=== PATIENT | female | born 1980 | race Caucasian/White ===

== ENCOUNTER 2017-05-26 11:08 | Emergency (ER) | payer BC, OTHER ==
[~2017-05-26] VITALS: Ht 167.6 cm; Wt 89.6 kg
[2017-05-26 11:26] VITALS: TEMP 36.9; Ht 167.6 cm; Wt 89.6 kg
[2017-05-26] MEDS ORDERED: ONDANSETRON INJ 2 MG/ML 2 ML VIAL IV STA (12:26)
[2017-05-26] MEDS ORDERED: MoRPHine SULFATE 10 MG/ML CARP/VIAL IV STA (12:26)
[2017-05-26] MEDS ORDERED: LACTATED RINGER'S 1000ML 1,000 ML IV ONE (12:30)
[2017-05-26 12:58] VITALS: O2SAT 97
[2017-05-26 13:15] LABS: URINE APPEARANCE CLEAR (CLEAR); URINE BILIRUBIN NEG (NEG); URINE COLOR YELLOW; URINE NITRITE NEG (NEG); URINE PH 5.5 (4.5-7.5); URINE SPECIFIC GRAVITY 1.012 (1.000-1.030); UROBILINOGEN NEG (NEG)
[2017-05-26 13:16] LABS: MANUAL MICROSCOPIC REQUIRED? NO; REVIEW REQ? NO
[2017-05-26 13:18] LABS: BASO % 0.3 %; BASO ABS # 0.04 K/uL (0-0.2); COMPLETE YES; EOS % 1.1 %; HEMATOCRIT 40.8 % (37-47); IG% 0.2 %; LYMPH % 14.9 %; LYMPH ABS # 2.04 K/uL (1.2-3.4); MEAN CELL VOLUME 91.3 fL (80-100); MEAN PLATELET VOLUME 10.7 fL (7.4-10.4); MONO % 9.3 %; NEUT % 74.2 %; PLATELET COUNT 305 K/uL (130-400); RED BLOOD COUNT 4.47 M/uL (4.2-5.4)
[2017-05-26 13:37] LABS: BUN/CREATININE RATIO 9.2 (10-20); CREATININE 0.77 mg/dl (0.60-1.20); POTASSIUM 3.8 mmol/L (3.5-5.1)
[2017-05-26] MEDS ORDERED: OPTIRAY 320 IV PRN (15:15)
[2017-05-26 15:50] VITALS: BP 120/90; PULSE 82; O2SAT 98
--- NOTE | 2017-05-26 15:51 | DIAGNOSTIC IMAGING REPORT ---
ABDOMEN AND PELVIS CT WITH IV AND ORAL CONTRAST CT DOSE: 980.11 mGycm HISTORY: Left lower quadrant abdominal pain. TECHNIQUE: Multiaxial CT images of the abdomen and pelvis were performed following the use of intravenous and oral contrast. A dose lowering technique was utilized adhering to the principles of ALARA. COMPARISON STUDY: None. FINDINGS: Punctate calcified granuloma within the left lower lobe. No pneumoperitoneum. No pneumatosis. No suspicious lytic or blastic osseous lesions. Tiny fat-containing umbilical hernia. Hepatic steatosis. Cholecystectomy. The spleen and adrenal glands are unremarkable. Normal pancreas. No renal stones or hydronephrosis. The kidneys enhance normally. The bladder, uterus, bilateral adnexa are unremarkable. Trace pelvic free fluid. A few colonic diverticula. A single inflamed diverticulum with surrounding fat stranding within the proximal sigmoid colon on image 343. This is consistent with acute diverticulitis. No perforation or abscess identified at this time. No evidence for bowel obstruction. Normal caliber appendix. IMPRESSION: Acute sigmoid diverticulitis. No perforation or abscess at this time. Electronically signed by: Camron Ovalles M.D. 05/26/2017 3:50 PM Dictated Date/Time: 05/26/2017 3:45 PM
--- NOTE | 2017-05-26 15:53 | DIAGNOSTIC IMAGING REPORT ---
EXAMINATION: PELVIC ULTRASOUND (transabdominal and endovaginal scanning) CLINICAL HISTORY: Pelvic pain, nausea, vomiting, diarrhea. COMPARISON STUDY: FINDINGS: The uterus measured 11.0 x 5.1 x 4.8 cm. There is a 12 mm fundal fibroid.. The bulging gland cysts are visualized. The endometrial stripe measured 9 mm. The right ovary measured 32 x 29 x 17 mm. There is a 19 mm follicle. The left ovary measured 27 x 19 x 16 mm.. There is no ultrasonographic evidence of ovarian torsion. It should be noted that ovarian torsion can be present with normal Doppler ultrasonographic findings. There was no evidence of pathologic free pelvic fluid. IMPRESSION: 1. 12 mm uterine fundal fibroid 2. Otherwise normal study. No pathologic adnexal masses. Electronically signed by: Lee Dimas M.D. 05/26/2017 3:52 PM Dictated Date/Time: 05/26/2017 3:50 PM
[2017-05-26] MEDS ORDERED: AMOX875T PO (16:12)
[2017-05-26] MEDS ORDERED: HYDR-5688 PO (16:12)
[2017-05-26] MEDS ORDERED: AMOXICILLIN/CLAVULANATE TAB 875 MG TAB PO ONE (16:15)
--- NOTE | 2017-05-26 20:18 | EMERGENCY ROOM VISIT NOTE ---
ED Visit Note First contact with patient: 11:59 Chief Complaint: I'm having pain in my left lower abdomen. History of Present Illness: Ms. Goss is a 37 year-old white female who ambulates into the ED accompanied by male friend complaining of left lower quadrant abdominal pain. Historically patient reports status post cholecystectomy and bilateral salpingectomy following topic . Patient reports a gradual onset of left lower quadrant abdominal pain that started approximately 18 hours ago. Since that time the pain has been slowly getting worse. The pain is currently described as cramping sensation that waxes and wanes with in intensity. Currently at rest she rates her discomfort 5 /10 but when it escalates her pain becomes 8/10. The pain is radiating towards the midline. Her pain worsens when she is lying on her left side, lying on her abdomen, and ambulating. She has not identified any alleviating factors related to the pain. She has not taken any medications for pain prior to arrival at the hospital. Associated with her pain she's been nauseated but has not vomited, she feels bloated and she has noted that her bowel movements are foul-smelling. Patient denies fevers, chills, sweats, skin eruptions, skin color changes, upper respiratory tract symptoms, shortness of breath, chest pain, nausea, vomiting, diarrhea, constipation, rectal bleeding, black/tarry stools, urinary symptoms, hematuria, vaginal bleeding, vaginal discharge, back/flank pain. Review of Systems: As noted above in history of present illness. All body systems were reviewed and found to be negative as noted above. Past Medical History: As noted above, unspecified knee, shoulder and finger surgery. Current Medications: Patient denies. Allergies to Medications: Patient denies. Social History: Patient is currently employed; she feels safe in her home environment; she denies tobacco and alcohol use. Physical Examination: Vital Signs: Date Time Temp Pulse Resp B/P (MAP) Pulse Ox O2 Delivery O2 Flow Rate FiO2 05/26/17 15:50 82 20 120/90 98 Room Air 05/26/17 13:52 80 18 134/87 96 Room Air 05/26/17 13:07 104 05/26/17 13:05 104 05/26/17 12:58 97 Room Air 05/26/17 12:58 98 16 123/86 96 Room Air 05/26/17 11:26 36.9 102 20 140/94 99 Room Air GENERAL: 37-year-old female in mild to moderate distress due to pain, nontoxic- appearing, afebrile and hemodynamically stable. NEUROLOGICAL: Awake, alert and oriented to person, place and time. Answering questions appropriately and following commands. Normal gait. Good hand eye coordination. SKIN: Warm, dry and pink. No soft tissue eruptions or trauma noted. HEENT: Atraumatic and normocephalic. PERRLA. Sclera white and conjunctiva pink. Oral cavity moist and pink. Pharynx is nonerythematous or edematous. Speech normal. No lymphadenopathy. Trachea midline. No jugular venous distention. BACK: No tenderness over the bony spine. No CVA tenderness. THORAX: Lungs sounds are clear to auscultation and equal bilaterally with symmetrical chest wall. No wheezing, rales or rhonchi. No crepitus, tenderness , subcutaneous air or deformities noted. HEART: Regular rate and rhythm. No gallops, rubs or murmurs are appreciated. ABDOMEN: Flat and soft with moderate tenderness in the left lower quadrant. Positive bowel sounds in all quadrants. No guarding, rigidity or organomegaly. EXTREMITIES: Moves all extremities well on command and with purpose. All distal neurovascular statuses are intact and equal bilaterally. ED Course: Patient is assessed as noted above. Laboratory Testing: Test 05/26/17 12:40 05/26/17 12:50 Range/Units White Blood Count 13.70 4.8-10.8 K/uL Red Blood Count 4.47 4.2-5.4 M/uL Hemoglobin 14.3 12.0-16.0 g/dL Hematocrit 40.8 37-47 % Mean Corpuscular Volume 91.3 80-100 fL Mean Corpuscular Hemoglobin 32.0 25-34 pg Mean Corpuscular Hemoglobin Concent 35.0 32-36 g/dl Platelet Count 305 130-400 K/uL Mean Platelet Volume 10.7 7.4-10.4 fL Neutrophils (%) (Auto) 74.2 % Lymphocytes (%) (Auto) 14.9 % Monocytes (%) (Auto) 9.3 % Eosinophils (%) (Auto) 1.1 % Basophils (%) (Auto) 0.3 % Neutrophils # (Auto) 10.16 1.4-6.5 K/uL Lymphocytes # (Auto) 2.04 1.2-3.4 K/uL Monocytes # (Auto) 1.28 0.11-0.59 K/uL Eosinophils # (Auto) 0.15 0-0.5 K/uL Basophils # (Auto) 0.04 0-0.2 K/uL RDW Standard Deviation 42.7 36.4-46.3 fL RDW Coefficient of Variation 12.8 11.5-14.5 % Immature Granulocyte % (Auto) 0.2 % Immature Granulocyte # (Auto) 0.03 0.00-0.02 K/uL Sodium Level 140 136-145 mmol/L Potassium Level 3.8 3.5-5.1 mmol/L Chloride Level 109 98-107 mmol/L Carbon Dioxide Level 24 21-32 mmol/L Anion Gap 7.0 3-11 mmol/L Blood Urea Nitrogen 7 7-18 mg/dl Creatinine 0.77 0.60-1.20 mg/dl Est Creatinine Clear Calc Drug Dose 111.7 ml/min Estimated GFR () 113.5 Estimated GFR (Non- 97.9 BUN/Creatinine Ratio 9.2 10-20 Random Glucose 79 70-99 mg/dl Calcium Level 9.0 8.5-10.1 mg/dl Total Bilirubin 1.8 0.2-1 mg/dl Direct Bilirubin 0.3 0-0.2 mg/dl Aspartate Amino Transf (AST/SGOT) 20 15-37 U/L Alanine Aminotransferase (ALT/SGPT) 37 12-78 U/L Alkaline Phosphatase 63 45-117 U/L Total Protein 8.3 6.4-8.2 gm/dl Albumin 3.7 3.4-5.0 gm/dl Lipase 161 73-393 U/L Urine Color YELLOW Urine Appearance CLEAR CLEAR Urine pH 5.5 4.5-7.5 Urine Specific [place] 1.012 1.000-1.030 Urine Protein NEG NEG Urine Glucose (UA) NEG NEG Urine Ketones NEG NEG Urine Occult Blood NEG NEG Urine Nitrite NEG NEG Urine Bilirubin NEG NEG Urine Urobilinogen NEG NEG Urine Leukocyte Esterase NEG NEG Urine Test NEG NEG Pelvic Ultrasound: Was reviewed by myself and read by the radiologist and shows a 12 mm uterine fundal fibroid and no sonographic evidence of ovarian torsion. Contrast Abdominal/Pelvic CT: Was reviewed by myself and read by the radiologist and shows a few colonic diverticula with a single inflamed diverticulum consistent with acute diverticulitis. No perforation or abscess. Patient was hydrated with lactated Ringer's and she received 4 mg of Zofran IV and 6 mg of morphine IV for her symptoms. Patient was reassessed multiple times during her stay in the emergency department. After she returned from her pelvic ultrasound she became nauseated and had episode of vomiting and she was given an additional 4 mg of Zofran IV; she was offered pain medications and refused. After CT findings patient was given 875 mg of Augmentin by mouth for antibiotic coverage. Patient's case was reviewed with Dr. Miranda; we agreed on diagnostic approach, treatment, disposition and plan. Patient was educated about today's findings and instructed on her treatment plan ; she verbalizes understanding and agreement with this plan. Clinical Impression: Acute sigmoid diverticulitis. Decision-Making: Initially my differential diagnosis I considered ectopic , ovarian torsion, ovarian cyst rupture, diverticulitis, appendicitis, constipation, urinary tract infection, ureter calculus and other causes. Disposition: Patient discharged home in stable condition accompanied by her ; prior to departure she was reassessed and subjectively reported she was feeling slightly better and rated her discomfort 4/10 and reported resolution of nausea. Plan: Patient was prescribed Augmentin 875 mg 2 times a day for 10 days. Patient was placed on a sliding pain scale of ibuprofen, acetaminophen and [place] ; she was given appropriate narcotic precautions and her name was checked on the state database and no red flags were noted. Patient was signed off work for 3 days. Patient was encouraged a well-hydrated with increased clear fluids and use a bland diet for the next 48 hours. Patient was encouraged to follow-up with PCP for recheck. Patient was encouraged return ED for worsening/uncontrolled pain, fevers, uncontrolled vomiting, bloody stools or any new/concerning symptoms.
== END 2017-05-26 16:20 | disposition home or self-care (01) ==
LOC: C.EDB 11:10
DX: K57.32 Diverticulitis of large intestine without perforation or abscess without bleeding (principal)

== ENCOUNTER 2017-10-20 15:30 | Emergency (ER) | payer OTHER ==
[~2017-10-20] VITALS: Ht 167.6 cm; Wt 88.7 kg
[~2017-10-20 15:30] MED LIST: HYDR-5688 PO
[2017-10-20 15:31] VITALS: Ht 167.6 cm; Wt 88.7 kg
[2017-10-20] MEDS ORDERED: SODIUM CHLORIDE 0.9% 1000ML 1,000 ML IV STA (15:42)
[2017-10-20] MEDS ORDERED: KETOROLAC TROMETHAMINE 30 MG/ML VIAL IV STA (15:42)
[2017-10-20] MEDS ORDERED: SODIUM CHLORIDE 0.9% 1000ML 1,000 ML IV ONE (15:42)
--- NOTE | 2017-10-20 15:51 | EMERGENCY ROOM VISIT NOTE ---
History Report prepared by Edwin: Rosa Acuña Under the Supervision of: Dr. Yuriy Menezes M.D. First contact with patient: 15:34 Chief Complaint: ABDOMINAL PAIN Stated Complaint: DIVERTICULITIS FLARE UP X2 WEEKS Nursing Triage Summary: Triage note: Has diverticulitis, finished a course of atbs. Symptoms resolved for a few dasy but have returned. Symptoms included LLQ pain, tender, frequent loose stools. History of Present Illness The patient is a 37 year old female who presents to the Emergency Room with complaints of intermittent LLQ abdominal pain for two weeks. She currently rates her pain a 6/10 in severity. She reports nausea. She notes diarrhea that is odorous. She denies any fever or vomiting. She denies any history of C. diff. She states that she was diagnosed with diverticulitis June 2017. She notes the pain is similar to her previous diverticulitis symptoms. She denies any bloody or black stools. She has a history of oophorectomy. She denies any chances of . She denies any urinary symptoms. She denies any back pain , chest pain, or shortness of breath. She self-medicated with Amoxicillin and she took five doses worth of the medication. She states that she felt better after three days of antibiotic use, though the pain returned after she stopped taking the antibiotics. She has not had a colonoscopy, though is scheduled for November 03, 2017. Source of History: patient Onset: two weeks Position: abdomen (LLQ) Symptom Intensity: 6/10 Timing: intermittent Associated Symptoms: + nausea, + diarrhea, No fevers, No chest pain, No SOB , No vomiting, No back pain Note: She notes odorous stools. She denies any black or bloody stools. Review of Systems See HPI for pertinent positives & negatives. A total of 10 systems reviewed and were otherwise negative. Past Medical & Surgical Surgical Problems: (1) H/O knee surgery (2) H/O laparoscopy (3) H/O oophorectomy (4) H/O shoulder surgery (5) Hx of cholecystectomy Old medical records were reviewed. Nurse's notes were reviewed and I agree with. Family History Diabetes mellitus FHx: cancer FHx: gallbladder disease Hypertension Social History Smoking Status: Never Smoker Smokeless Tobacco Use: No Alcohol Use: none Drug Use: none Marital Status: single Housing Status: lives with significant other Occupation Status: employed Current/Historical Medications Scheduled Amoxicillin & Pot Clavulanate (Augmentin 875-125 mg), 875 MG PO BID Allergies Coded Allergies: No Known Allergies (Unverified , 10/19/13) Physical Exam Vital Signs Date Time Temp Pulse Resp B/P (MAP) Pulse Ox O2 Delivery O2 Flow Rate FiO2 10/20/17 19:10 36.8 87 18 123/84 100 Room Air 10/20/17 17:40 94 18 136/90 100 Room Air 10/20/17 16:31 97 18 143/95 99 Room Air 10/20/17 15:31 36.7 100 16 147/94 98 Room Air Physical Exam General: Non-ill appearing middle-aged female in no acute distress. HEENT: Normal cephalic atraumatic. Pupils are equal round and reactive to light. Extraocular movements are intact. Oropharynx is pink with moist mucous membranes. No swelling of the mouth lips or tongue. Neck: Supple with a midline trachea. No meningeal signs or stiffness, no JVD or bruits. No Stridor. Chest: Clear to auscultation bilaterally. No wheezes or rhonchi. No increased work of breathing. Heart: regular rate and rhythm. Abdomen: Soft, mildly tender to palpation in lower abdomen, nondistended without rebound guarding or rigidity. No peritonitis. Extremities: No cyanosis clubbing or edema. No calf tenderness or assymetry Spine/Back. Non tender to palpation. No CVA tenderness Skin: Good turgor without rashes. Neurologic exam: Cranial nerves two through 12 are intact. Motor and sensation are intact and symmetrical throughout. Medical Decision & Procedures ER Provider Diagnostic Interpretation: Radiology results as stated below per my review and radiologist interpretation: ABDOMEN AND PELVIS CT WITH IV AND ORAL CONTRAST CT DOSE: 0.00 mGy.cm HISTORY: Acute lower abdominal pain with concern for diverticulitis eval for diverticulits, roberta TECHNIQUE: Multiaxial CT images of the abdomen and pelvis were performed following the use of intravenous and oral contrast. A dose lowering technique was utilized adhering to the principles of ALARA. COMPARISON STUDY: CT abdomen and pelvis 05/26/2017. FINDINGS: Minimal dependent subsegmental bibasilar atelectasis. There is no pneumatosis or pneumoperitoneum identified. The imaged inferior cardiac chambers are unremarkable. The liver, spleen, pancreas and adrenal glands are within normal limits. Prior cholecystectomy. Kidneys, ureters and urinary bladder are within normal limits. Peripherally enhancing cystic lesion of the left adnexum is noted, 1.8 x 1.0 cm. The right adnexum is unremarkable. Aorta is normal in both course and caliber. No bulky adenopathy. No bowel obstruction. Mild colonic diverticulosis with an inflamed diverticulum of the mid descending colon, image 181 of series 3. There is associated mild to moderate wall thickening of the bowel with mild associated inflammatory changes within the adjacent mesentery. Trace free fluid tracks along the left pericolic gutter. No evidence of perforation or abscess. Normal appendix. Soft tissues are unremarkable. The bones appear to be intact. Mild degenerative changes of the bilateral SI joints. IMPRESSION: 1. Findings compatible with acute uncomplicated diverticulitis of the mid descending colon. No evidence of abscess or perforation. 2. 1.8 cm involuting follicle of the left ovary. 3. Prior cholecystectomy. Electronically signed by: Lokesh Mojica M.D. 10/20/2017 6:39 PM Dictated Date/Time: 10/20/2017 6:33 PM Laboratory Results 10/20/17 16:01 Red Blood Count 4.58, Mean Corpuscular Volume 91.0, Mean Corpuscular Hemoglobin 31.4, Mean Corpuscular Hemoglobin Concent 34.5, Mean Platelet Volume 10.0, Neutrophils (%) (Auto) 70.6, Lymphocytes (%) (Auto) 18.0, Monocytes (%) (Auto) 9.0, Eosinophils (%) (Auto) 1.8, Basophils (%) (Auto) 0.3, Neutrophils # (Auto) 10.99, Lymphocytes # (Auto) 2.80, Monocytes # (Auto) 1.40, Eosinophils # (Auto) 0.28, Basophils # (Auto) 0.04 10/20/17 16:01 Test 10/20/17 16:01 White Blood Count 15.55 K/uL (4.8-10.8) Red Blood Count 4.58 M/uL (4.2-5.4) Hemoglobin 14.4 g/dL (12.0-16.0) Hematocrit 41.7 % (37-47) Mean Corpuscular Volume 91.0 fL (80-100) Mean Corpuscular Hemoglobin 31.4 pg (25-34) Mean Corpuscular Hemoglobin Concent 34.5 g/dl (32-36) Platelet Count 349 K/uL (130-400) Mean Platelet Volume 10.0 fL (7.4-10.4) Neutrophils (%) (Auto) 70.6 % Lymphocytes (%) (Auto) 18.0 % Monocytes (%) (Auto) 9.0 % Eosinophils (%) (Auto) 1.8 % Basophils (%) (Auto) 0.3 % Neutrophils # (Auto) 10.99 K/uL (1.4-6.5) Lymphocytes # (Auto) 2.80 K/uL (1.2-3.4) Monocytes # (Auto) 1.40 K/uL (0.11-0.59) Eosinophils # (Auto) 0.28 K/uL (0-0.5) Basophils # (Auto) 0.04 K/uL (0-0.2) RDW Standard Deviation 42.8 fL (36.4-46.3) RDW Coefficient of Variation 13.0 % (11.5-14.5) Immature Granulocyte % (Auto) 0.3 % Immature Granulocyte # (Auto) 0.04 K/uL (0.00-0.02) Anion Gap 7.0 mmol/L (3-11) Est Creatinine Clear Calc Drug Dose 105.6 ml/min Estimated GFR () 106.8 Estimated GFR (Non- 92.1 BUN/Creatinine Ratio 11.1 (10-20) Calcium Level 9.0 mg/dl (8.5-10.1) Total Bilirubin 1.3 mg/dl (0.2-1) Direct Bilirubin 0.3 mg/dl (0-0.2) Aspartate Amino Transf (AST/SGOT) 24 U/L (15-37) Alanine Aminotransferase (ALT/SGPT) 35 U/L (12-78) Alkaline Phosphatase 73 U/L (45-117) Total Protein 8.6 gm/dl (6.4-8.2) Albumin 3.8 gm/dl (3.4-5.0) Lipase 224 U/L (73-393) Human Chorionic Gonadotropin, Qual NEG (NEG) Laboratory studies as stated above per my review. Medications Administered Medications (Trade) Dose Ordered Sig/Sahra Route Start Time Stop Time Status Last Admin Dose Admin Sodium Chloride 1,000 ml @ 999 mls/hr Q1H1M STAT IV 10/20/17 15:42 10/20/17 16:42 DC 10/20/17 16:25 999 MLS/HR Sodium Chloride 1,000 ml @ 150 mls/hr Q6H40M ONCE IV 10/20/17 15:42 10/20/17 22:21 10/20/17 17:36 150 MLS/HR Ketorolac Tromethamine (Toradol Inj) 30 mg NOW STAT IV 10/20/17 15:42 10/20/17 15:45 DC 10/20/17 16:28 30 MG Ondansetron HCl (Zofran Inj) 4 mg NOW STAT IV 10/20/17 17:18 10/20/17 17:19 DC 10/20/17 17:35 4 MG Amoxicillin/ Clavulanate Potassium (Augmentin 875MG Home Pack) 1 homepack UD ONCE PO 10/20/17 19:00 10/20/17 19:01 DC 10/20/17 19:21 1 HOMEPACK ED Course 1535: Past medical records reviewed. The patient was evaluated in room B11B, and a complete history and physical examination were performed. 1542: Ordered Toradol 30 mg IV, Sodium Chloride 1,000 ml @ 150 mls/hr IV, and Sodium Chloride 1,000 ml @ 999 mls/hr IV 1630: I reassessed the patient at this time. She is resting and drinking the contrast. Her is present. 1724: I reassessed the patient at this time. She notes nausea, though she is still drinking the contrast. 1718: Ordered Zofran 4 mg IV 1825: I reassessed the patient at this time. She is resting. 1853: I reassessed the patient at this time. She is feeling better and resting comfortably. I discussed the results and treatment plan with the patient. I answered all pertaining questions that she had. She expressed understanding and verbalized agreement. The patient will be discharged home. 1900: Ordered Augmentin 1 homepack PO Medical Decision Differentials include, but are not limited to: diverticulitis, colitis, abscess , UTI, and electrolyte or metabolic abnormality. This patient comes in as described above. she has had left lower quadrant abdominal pain for about 2 weeks. she has a history of diverticulitis last year. she said it felt the same. she took a couple days of amoxicillin and started feeling better and now it has gotten worse. She has had no fever. She has mild tenderness but no peritonitis. She has had some diarrhea as well. IV access established multiple blood testing was obtained also obtain stool specimens to evaluate for possible C. difficile. I did a CAT scan with p.o. and IV contrast to evaluate for diverticular abscess or diverticulitis or colitis. She was given IV Toradol 30 mg IV. She was reassessed frequently. Her white count was elevated at 15. She is no acute electrolyte or metabolic abnormalities. She has minimal elevation of her bilirubin. She was getting a little bit nauseated with the oral contrast was given Zofran 4 mg IV. CAT scan shows diverticulitis that appears uncomplicated without abscess or perforation. She was started on Augmentin 875 mg twice daily for 10 days, the first dose was given here as well as a home pack and prescription. She has some leftover Percocet at home that she said she will use sparingly. She should return if: Increasing pain, worsening of symptoms, fever or chills, failure of symptoms to resolve the next 24-48 hours. She was happy to plan and discharged to home. Medication Reconcilliation Current Medication List: was personally reviewed by me Blood Pressure Screening Patient's blood pressure: Elevated blood pressure Blood pressure disposition: Elevated BP felt to be situational Impression Primary Impression: Diverticulitis Additional Impression: Left lower quadrant abdominal tenderness Scribe Attestation The scribe's documentation has been prepared under my direction and personally reviewed by me in its entirety. I confirm that the note above accurately reflects all work, treatment, procedures, and medical decision making performed by me. Departure Information Dispostion Home / Self-Care Prescriptions Amoxicillin & Pot Clavulanate (Augmentin 875-125 mg) 1 Tab Tab 875 MG PO BID for 10 Days, #20 TAB Prov: Yuriy Menezes M.D. 10/20/17 Referrals Dallas Atkins M.D. (PCP) Forms Call Back Authorization, HOME CARE DOCUMENTATION FORM, IMPORTANT VISIT INFORMATION Patient Instructions My [facility] Additional Instructions Rest. Drink plenty of fluids. Use Augmentin 875 mg twice a day for 10 days totalantibiotic Use ibuprofen 400 mg every 6 hours as needed for pain Return if: Increasing pain, failure of symptoms to resolve in the next 24-48 hours, fever, vomiting, worsening symptoms, any new problems or concerns. Follow-up with your doctor this week for recheck, return to ER at any point if symptoms worsen Problem Qualifiers
[2017-10-20 16:30] LABS: BASO % 0.3 %; BASO ABS # 0.04 K/uL (0-0.2); EOS % 1.8 %; EOS ABS # 0.28 K/uL (0-0.5); HEMATOCRIT 41.7 % (37-47); HEMOGLOBIN 14.4 g/dL (12.0-16.0); IG# 0.04 K/uL (0.00-0.02); MEAN CORPUSCULAR HEMOGLOBIN 31.4 pg (25-34); MEAN CORPUSCULAR HGB CONC 34.5 g/dl (32-36); NEUT % 70.6 %; NEUT ABS # 10.99 K/uL (1.4-6.5); PLATELET COUNT 349 K/uL (130-400); RED CELL DISTRIBUTION WIDTH SD 42.8 fL (36.4-46.3); WHITE BLOOD COUNT 15.55 K/uL (4.8-10.8)
[2017-10-20 16:37] LABS: ALBUMIN 3.8 gm/dl (3.4-5.0); CREATININE 0.81 mg/dl (0.60-1.20); POTASSIUM 3.8 mmol/L (3.5-5.1)
[2017-10-20 16:40] LABS: TOTAL PROTEIN 8.6 gm/dl (6.4-8.2)
[2017-10-20] MEDS ORDERED: ONDANSETRON INJ 2 MG/ML 2 ML VIAL IV STA (17:18)
[2017-10-20] MEDS ORDERED: OPTIRAY 320 IV PRN (18:00)
--- NOTE | 2017-10-20 18:40 | DIAGNOSTIC IMAGING REPORT ---
ABDOMEN AND PELVIS CT WITH IV AND ORAL CONTRAST CT DOSE: 0.00 mGy.cm HISTORY: Acute lower abdominal pain with concern for diverticulitis eval for diverticulitsroberta TECHNIQUE: Multiaxial CT images of the abdomen and pelvis were performed following the use of intravenous and oral contrast. A dose lowering technique was utilized adhering to the principles of ALARA. COMPARISON STUDY: CT abdomen and pelvis 05/26/2017. FINDINGS: Minimal dependent subsegmental bibasilar atelectasis. There is no pneumatosis or pneumoperitoneum identified. The imaged inferior cardiac chambers are unremarkable. The liver, spleen, pancreas and adrenal glands are within normal limits. Prior cholecystectomy. Kidneys, ureters and urinary bladder are within normal limits. Peripherally enhancing cystic lesion of the left adnexum is noted, 1.8 x 1.0 cm. The right adnexum is unremarkable. Aorta is normal in both course and caliber. No bulky adenopathy. No bowel obstruction. Mild colonic diverticulosis with an inflamed diverticulum of the mid descending colon, image 181 of series 3. There is associated mild to moderate wall thickening of the bowel with mild associated inflammatory changes within the adjacent mesentery. Trace free fluid tracks along the left pericolic gutter. No evidence of perforation or abscess. Normal appendix. Soft tissues are unremarkable. The bones appear to be intact. Mild degenerative changes of the bilateral SI joints. IMPRESSION: 1. Findings compatible with acute uncomplicated diverticulitis of the mid descending colon. No evidence of abscess or perforation. 2. 1.8 cm involuting follicle of the left ovary. 3. Prior cholecystectomy. Electronically signed by: Lokesh Mojica M.D. 10/20/2017 6:39 PM Dictated Date/Time: 10/20/2017 6:33 PM
[2017-10-20] MEDS ORDERED: AMOX875T PO (18:59)
[2017-10-20] MEDS ORDERED: AMOXICIL/CLAVU 875MG HOME PACK PO ONE (19:00)
[2017-10-20 19:10] VITALS: BP 123/84; PULSE 87; TEMP 36.8; O2SAT 100
== END 2017-10-20 19:11 | disposition home or self-care (01) ==
LOC: C.EDB 15:31
DX: K57.32 Diverticulitis of large intestine without perforation or abscess without bleeding (principal); R10.32 Left lower quadrant pain